=== PATIENT | male | born 1985 | race Two or more races ===

== ENCOUNTER 2024-08-11 12:09 | Emergency (ER) | payer OTHER ==
[~2024-08-11] VITALS: Ht 182.9 cm; Wt 91.0 kg
[2024-08-11 12:21] VITALS: O2SAT 99
[2024-08-11 12:26] VITALS: BP 137/64; PULSE 82; RESP 16; TEMP 36.7; O2SAT 100
[2024-08-11] MEDS ORDERED: DEXAMETHASONE 10 MG/ML VIAL PO ONE (13:45)
[2024-08-11] MEDS ORDERED: KETOROLAC 30MG/ML VIAL IM ONE (14:00)
[2024-08-11] MEDS ORDERED: AMOX1TAB16 MT (15:11)
[2024-08-11] MEDS ORDERED: DEXAMETHASONE 4MG TABLET PO NR (16:15)
== END 2024-08-11 16:31 | disposition home or self-care (01) ==
LOC: ER 12:09
DX: R68.84 Jaw pain (principal); Z79.52 Long term (current) use of systemic steroids
CPT/HCPCS: 99283